=== PATIENT | male | born 1965 | race Caucasian/White ===

== ENCOUNTER 2024-07-27 10:11 | Day surgery (SDC) | payer OTHER ==
[2024-07-22 15:08] VITALS: BMI 26.4
[~2024-07-27 10:11] MED LIST: ALPRAZolam 0.25 MG TAB PO PRN; ALPRAZolam 0.5 MG TAB PO PRN; NITROGLYCERIN SL TABS 0.4 MG TAB SUBLINGUAL PRN
[2024-07-27] MEDS: SODIUM CHLORIDE 0.9% 1,000 ML in EMPTY BAG 1 BAG IV SCH (10:31)
[2024-07-27] MEDS: ASPIRIN 325 MG TAB PO STA (10:31)
[2024-07-27] MEDS: IV FLUID CONTINUATION 1,000 ML IV ONE (10:33)
[2024-07-27 10:44] VITALS: RESP 16; TEMP 97.7
[2024-07-27 11:06] LABS: Basophils # (A) 0.1 k/uL (0-0.2); Basophils % (A) 1 %; Eosinophils # (A) 0.2 k/uL (0-0.7); Eosinophils % (A) 3 %; HCT 48.3 % (39.0-53.0); HGB 15.7 gm/dL (13.0-17.5); Lymphocytes # (A) 1.7 k/uL (1.0-4.8); Lymphocytes % (A) 24 %; MCH 30.8 pg (25.0-35.0); MCHC 32.5 g/dL (31.0-37.0); MCV 94.9 fL (80.0-100.0); Mean Platelet Volume 7.5; Monocytes # (A) 0.4 k/uL (0-1.0); Monocytes % (A) 5 %; Neutrophils # (A) 4.5 k/uL (1.3-7.7); Neutrophils % (A) 65 %; Platelet Count 245 k/uL (150-450); RBC 5.09 m/uL (4.30-5.90); RDW 12.6 % (11.5-15.5)
[2024-07-27 11:26] LABS: African American GFR (CKD) >90 (>60 ml/min/1.73 sqM); Anion Gap 11 mmol/L; Blood Urea Nitrogen 16 mg/dL (9-20); Calcium 9.5 mg/dL (8.4-10.2); Carbon Dioxide 21 mmol/L (22-30); Chloride 105 mmol/L (98-107); Glucose 96 mg/dL (74-99); Non-African American GFR(CKD) >90 (>60 ml/min/1.73 sqM); Potassium 4.2 mmol/L (3.5-5.1); Sodium 137 mmol/L (137-145)
[2024-07-27] MEDS: HEPARIN SODIUM,PORCINE 10,000 UNIT in SODIUM CHLORIDE 0.9% 1,000 ML IRRIGATION PRN (12:27)
[2024-07-27] MEDS: HEPARIN SODIUM,PORCINE (1 ML) 2,500 UNIT in SODIUM CHLORIDE 0.9% 250 ML IRRIGATION PRN (12:27)
[2024-07-27] MEDS: MIDAZOLAM 2 MG/2 ML VIAL IVP ONE (12:40)
[2024-07-27] MEDS: fentaNYL (PF) 50 MCG/ML 2 ML AMP IVP ONE (12:40)
[2024-07-27] MEDS: VERAPAMIL SYRINGE (5 MG/10 ML) INTRAARTER ONE (12:44)
[2024-07-27] MEDS: LIDOCAINE 1% INJ 10MG/ML (20 ML MDV) SQ ONE (12:44)
[2024-07-27] MEDS: HEPARIN SODIUM 1,000 UN/ML (10ML VL) IV ONE (12:47)
[2024-07-27] MEDS: IOPAMIDOL-370 100ML BTL INJ ONE ×2 (13:11)
--- NOTE | 2024-07-27 13:23 | P.CARDCATH ---
Description of Procedure: PROCEDURES PERFORMED: Left heart catheterization, bilateral coronary angiography, ultrasound guided arterial access, aortogram, RFR (iFR) RCA INDICATION: Aortic insufficiency, abnormal stress test CONSENT:I have discussed the risks, benefits and alternative therapies for the above-mentioned procedure and for both sedation/analgesia as well as necessary blood product administration, if indicated, as they pertain to this patient. The patient has indicated understanding and acceptance of the risks and procedures discussed. PROCEDURE: After the risks, benefits and alternatives of the above mentioned procedure explained in detail with the patient, informed consent was obtained. Patient was taken to the catheterization lab and prepped and draped in usual fashion. Ultrasound guidance was used to assess for arterial access. 1% lidocaine was used to anesthetize the right radial artery. A 6-[place]ij[place] sheath was placed in the right radial artery using modified Seldinger technique and ultrasound guidance. Left coronary angiography was performed with a 5-[place] JL 3.5 catheter and right coronary angiography was performed with a 6-[place] AL1 catheter in various views. A 5-[place] FR5 catheter was inserted into the left ventricle and pressure measurements were obtained. The decision was made to perform functional assessment of the RCA. Heparin was given. A 6 [place] AL-1 catheter was engaged in the RCA. I 0.014 pressure wire was advanced into the aorta and normalized. It was then advanced 1 cm distal to the RCA lesion. RFR was performed and was normal at 0.96. The decision was made to perform aortogram and a 6 [place] pigtail catheter was inserted into the aorta and aortogram was performed in the SINHA projection with power injection. The right radial sheath was removed and a TR band was placed with hemostasis achieved. The patient tolerated the procedure well. Patient was transported back to the post catheterization holding area in stable condition. Conscious Sedation: Patient was monitored under the direct supervision of myself for conscious sedation using Versed and fentanyl for a total duration of 26 minutes HEMODYNAMICS: Aorta: 120/82 LV: 134/8, LVEDP 15, mean gradient 16 mmHg SELECTIVE CORONARY ARTERIOGRAPHY: LEFT MAIN: The left main is a large caliber vessel which bifurcates into the LAD and circumflex. There is 10 to 20% proximal left main stenosis. LEFT ANTERIOR DESCENDING CORONARY ARTERY: LAD is a large caliber vessel which wraps around to the apex. There are mild luminal irregularities with 10 to 20% proximal and mid LAD stenosis. LEFT CIRCUMFLEX CORONARY ARTERY: Left circumflex is a moderate caliber vessel with mild luminal irregularities. RIGHT CORONARY ARTERY: The right coronary artery is a large caliber vessel which gives off a PDA and PLV branch and is the dominant vessel. There is ostial 50 to 60% stenosis and otherwise mild luminal irregularities ASCENDING AORTOGRAM: The aorta appears mildly dilated however consider CTA if clinically indicated. No dissection noted. There is 2+ aortic insufficiency. FINAL IMPRESSION: 1. CAD as described above including 10-20% left main, 10-20% LAD and 50-60% ostial RCA stenosis 2. High normal left sided filling pressures 3. RFR (iFR) RCA normal 4. Mild aortic stenosis with mean gradient 16mmHg 5. 2+ aortic insufficiency PLAN: 1. Aggressive risk factor modification per most recent ACC/AHA guidelines. 2. Follow-up in the office in 1-2 weeks.
[2024-07-27 17:27] VITALS: BP 157/85
[2024-07-27 17:30] VITALS: PULSE 65
== END 2024-07-27 16:20 | disposition home or self-care (01) ==
LOC: CATHCVL 10:11
PROVIDERS: ATTEND Internal Medicine
DX: I25.10 Atherosclerotic heart disease of native coronary artery without angina pectoris (principal); I35.2 Nonrheumatic aortic (valve) stenosis with insufficiency; I10 Essential (primary) hypertension; E78.5 Hyperlipidemia, unspecified; Z79.899 Other long term (current) drug therapy
CPT/HCPCS: 99152; 99153; 93458; 93567; 93799; 80048; 85025; J2250; J1644 ×3; J2003; J3010; Q9967